=== PATIENT | male | born 1950 | race Caucasian/White ===

== ENCOUNTER 2024-04-26 15:06 | Emergency (ER) | payer MEDICARE, SELFPAY ==
[2024-04-26 15:06] VITALS: BP 133/61; PULSE 96; RESP 20; TEMP 36.6; O2SAT 95; BMI 18.1
--- NOTE | 2024-04-26 15:09 | XR_ITS ---
PROCEDURE INFORMATION: Exam: XR Left Hip Exam date and time: 04/26/2024 3:30 PM Age: 74 years old Clinical indication: Injury or trauma; Fall; Blunt trauma (contusions or hematomas); Left; Hip; Additional info: Fall from standing, left hip pain, unable amb TECHNIQUE: Imaging protocol: Radiologic exam of the left hip. Views: 2 or 3 views hip with pelvis when performed. COMPARISON: No relevant prior studies available. FINDINGS: Bones/joints: Mild degenerative changes left hip joint consisting of mild joint space narrowing and subchondral sclerosis. No fracture or malalignment. Soft tissues: There is a long vascular stent within the left upper thigh. Soft tissues otherwise unremarkable.. IMPRESSION: Mild degenerative changes left hip joint. No acute bony abnormalities.
--- NOTE | 2024-04-26 15:16 | ED_ITS ---
Discharge Plan Disposition Chief Complaint: Fall Referrals Follow up/Referrals: Provider,Referral, [Primary Care Provider] - See instructions Clinical Impressions Clinical Impression: Intertrochanteric fracture of left femur Print Language Print Language: Kiswahili Discharge ED Provider: Lesley Bobby Adult HPI General Chief complaint: Fall Stated complaint: fall off pavement 04/26 Time Seen by Provider: 04/26/24 15:08 Mode of Arrival: Ambulatory Source of Information: Patient and EMS Limitations: No Limitations Description of Symptoms (Recalled from ER Triage Doc. by RN): pt tripped over curb and fell onto left hip and now complains of pain in that area, ems gave 50 mcg fentanyl, [facility] History of Present Illness HPI narrative: Patient is a 74yo M with H CAD on blood thinner (pt does not know which one) and ASA presenting after fall from standing with L hip pain. [place] when he went to step off a curb and misstepped, falling and landing onto his left hip. He has not been able to ambulate since. He did not hit his head nor lose consciousness. Denies n/t. Denies pain or injury to any other extremity. Related Data Allergies Allergy/AdvReac Type Severity Reaction Status Date / Time No Known Allergies Allergy Verified 04/26/24 15:31 [facility] Disclaimer: The information contained in this section may have been updated after the patient was seen, as this information can be updated by other users. Social History Smoking Status: Current every day smoker alcohol intake: never current occupational status: retired Travel in the last 8 weeks: Inside the [place] ROS Obtained: Yes All systems reviewed & no additional complaints except as documented Physical Exam General General appearance: alert and in no apparent distress Head Head exam: atraumatic and normocephalic Chest Chest inspection: Present normal inspection and symmetric chest wall rise Respiratory Respiratory exam: Present normal lung sounds bilaterally; Absent respiratory distress Cardiovascular Cardiovascular exam: Present regular rate and normal rhythm Extremities Exam Extremities exam: Present normal inspection and other (difficulty with ROM at the L hip due to pain, 2+ DP and PT pulses, neurologically intact distal L extremity, TTP over L hip at trochanteric region, no abrasion or ecchymosis) Neurological Exam Neurological exam: Present alert and oriented X3 Skin Skin exam: Present warm and dry Medical Decision Making Medical Records Medical records reviewed: Yes I reviewed the patient's medical records. Lee Inquiry Pt receiving controlled substance: No Vital Signs: 04/26/24 15:06 04/26/24 15:48 04/26/24 17:14 Temperature 97.9 F Temperature Source Oral Pulse Rate 93 H 99 H Pulse Rate [Right Radial] 96 H Respiratory Rate 20 Blood Pressure 92/66 L 145/68 H Blood Pressure [Right Arm] 133/61 Blood Pressure Mean [Right Arm] 85 02 Sat by Pulse Oximetry 95 94 L 98 Oxygen Delivery Method Room Air Room Air Orders (Tests/Meds): ED MEDICATIONS Discontinued Medications Generic Name Dose Route Start Last Admin Trade Name Freq PRN Reason Stop Dose Admin Fentanyl Citrate 50 mcg 04/26/24 15:29 04/26/24 15:32 Fentanyl 100mcg/2ml Vial IV 04/26/24 15:30 50 mcg ONCE ONE Administration Fentanyl Citrate 50 mcg 04/26/24 16:25 04/26/24 16:58 Fentanyl 100mcg/2ml Vial IV 04/26/24 16:26 50 mcg ONCE ONE Administration Methocarbamol 1,000 mg 04/26/24 16:26 04/26/24 17:16 Methocarbamol 500mg Tablet PO 04/26/24 16:27 1,000 mg ONCE ONE Administration ORDERS Category Date Time Status CT pelvis wo con Stat Cat Scan 04/26/24 16:20 Completed XR hip LT 2-3V w/pelvis Stat Exams 04/26/24 15:09 Completed Medical Decision Narrative: Patient is a 74-year-old male with past medical history CAD on blood thinner t marisabel patient is unsure of which 1 as well as aspirin presenting with left hip pain after fall off of a curb/fall from standing. He did not hit his head or lose consciousness. He does have left hip pain and is not able to ambulate since the event. He is neurovascularly intact with 2+ pulses but has tenderness to palpation over the left hip without abrasion or ecchymosis. Will obtain imaging for further evaluation and provide additional analgesia as he was already given 50 mcg of fentanyl prior to arrival by EMS but not able to complete imaging without further pain medication due to pain with extension at the left hip. X-ray did not show acute process but given patient's clinical exam I do have concern for likely fracture and CT was performed that does show an acute nondisplaced intertrochanteric fracture of the left hip. We do not have Ortho on-call at this time this weekend and is out on vacation this week and therefore I spoke with Dr. Branch with [facility] who agrees accept patient for transfer to [facility] emergency department. Patient updated and agreeable with plan. Critical Care Critical Care Time Critical Care Time: No
[2024-04-26] MEDS: FENTANYL 100MCG/2ML VIAL 50 MCG IV ×2 (15:32→16:58)
[2024-04-26 15:48] VITALS: BP 92/66; PULSE 93; O2SAT 94
--- NOTE | 2024-04-26 16:20 | CT_ITS ---
PROCEDURE INFORMATION: Exam: CT Pelvis Without Contrast; Skeletal Exam date and time: 04/26/2024 5:11 PM Age: 74 years old Clinical indication: Pain; Other: Left hip; Additional info: L hip pain after ffs, unable amb TECHNIQUE: Imaging protocol: Computed tomography of the pelvis without contrast. Exam focused on the skeleton. Radiation optimization: All CT scans at this facility use at least one of these dose optimization techniques: automated exposure control; mA and/or kV adjustment per patient size (includes targeted exams where dose is matched to clinical indication); or iterative reconstruction. COMPARISON: CR XR HIP LT 2-3V W/PELVIS 04/26/2024 3:30 PM FINDINGS: Bones/joints: There is an acute transverse oriented intertrochanteric fracture of the left hip best demonstrated in the axial plane involving both the greater and lesser trochanters. No significant malalignment or displacement detected. Remainder the visualized osseous structures are intact. Joint surfaces are fairly well preserved. Both hips are somewhat abducted in position. Soft tissues: Unremarkable. IMPRESSION: Acute nondisplaced, intertrochanteric fracture left hip.
--- NOTE | 2024-04-26 17:01 | PC.NURSE ---
PT TO CT
--- NOTE | 2024-04-26 17:13 | PC.NURSE ---
pt back in room from CT
[2024-04-26 17:14] VITALS: BP 145/68; PULSE 99; O2SAT 98
[2024-04-26] MEDS: METHOCARBAMOL 500MG TABLET 1000 MG PO (17:16)
--- NOTE | 2024-04-26 17:17 | PC.NURSE ---
pt voided via urinal independently
--- NOTE | 2024-04-26 17:35 | PC.NURSE ---
DR GIBBS AT BEDSIDE TO UPDATE PT
--- NOTE | 2024-04-26 17:37 | PC.NURSE ---
spoke with tx center, Dr. Bobby on phone with [facility] discussing tx
--- NOTE | 2024-04-26 17:40 | PC.NURSE ---
EMS notified of tx to [facility]
[2024-04-26 18:06] VITALS: BP 123/66; PULSE 85; RESP 18; TEMP 36.9; O2SAT 97
== END 2024-04-26 18:06 | disposition short-term general hospital (02) ==
PROVIDERS: Emergency Provider Emergency Medicine
DX: S72.145A Nondisplaced intertrochanteric fracture of left femur, initial encounter for closed fracture (principal); F17.210 Nicotine dependence, cigarettes, uncomplicated; W10.1XXA Fall (on)(from) sidewalk curb, initial encounter
CPT/HCPCS: 72192; 73502; 96374; 96376; 99284; J3010